=== PATIENT | female | born 1990 | race Two or more races ===

== ENCOUNTER 2017-02-02 03:26 | Emergency (ER) | payer SELFPAY ==
[2017-02-02 04:15] VITALS: TEMP 98.8
--- NOTE | 2017-02-02 05:32 | PD ---
HPI Chief Complaint contractions Date Seen: Feb 02, 2017 Travel History International Travel<30 Days: No Contact w/Intl Traveler<30Days: No History of Present Illness HPI 26 yo with no care. LMP thought to be April 2016. Patient's stated she is 40 weeks. Patient presents with c/o contractions. No LOF, VB. +FM Patient is from [facility] and her dialect cannot be translated by [employer] or beauty culturist apprentice present. Her can communicate with the translators. History Past Medical History Medical History: Denies Significant Hx Obstetric History Obstetric History 2009 @ term [facility] 2015 @ [facility] Past Surgical History Surgical History: No Previous Surgery Family History Family History: Negative Social History Alcohol Use: No Tobacco Use: No Substance Abuse: No Allergies-Medications (Allergen,Severity, Reaction): Coded Allergies: No Known Allergies (Unverified , 02/02/17) Review of Systems General / Constitutional: No: Fever, Chills HENT: No: Headaches Cardiovascular: No: Chest Pain or Discomfort, Palpitations Respiratory: No: Short of Breath, Wheezing Gastrointestinal: Abdominal Pain (occasional contraction), No: Nausea, Vomiting, Diarrhea Genitourinary: No: Urgency, Frequency, Dysuria, Discharge, Vaginal Bleeding Musculoskeletal: No: Weakness, Edema Skin: No Rash, No Itching, No Lesions Neurologic: No: Syncope, Focal Abnormalities Physical Exam Exam Limitations: Poor Historian (varied information ) Narrative GENERAL: Well-nourished, well-developed patient. NAD SKIN: Warm and dry. HEAD: Normocephalic and atraumatic. EYES: No scleral icterus. No injection or drainage. ENT: No nasal drainage noted. Mucous membranes pink. Airway patent. NECK:trachea midline. No JVD. CARDIOVASCULAR: Regular rate and rhythm without murmurs, gallops, or rubs. RESPIRATORY: Breath sounds equal bilaterally. No accessory muscle use. ABDOMEN/GI: Abdomen soft, non-tender, no rebound, no guarding Gravid size< dates TOCO: Rare UC GENITOURINARY: External Genitalia: intact and normal in appearance BUS glands: [-] SVE: Closed/thick/high, no presenting part palpated by RN FHT's: Category: I Baseline: 125 Reactive: +accelerations Variability: mod Decels: [-] EXTREMITIES: No cyanosis or edema. BACK: Nontender without obvious deformity. NEUROLOGICAL: Awake and alert. Motor and sensory grossly within normal limits. Normal speech. BEDSIDE US: Normal CHERIE Fundal posterior placenta EGA 32w4d EFW 1913g CROW Data Data Vital Signs Reviewed: Yes Orders Vital Signs (Adult) .ON ADMISSION (02/02/17 04:59) ^ Labor Status (02/02/17 04:59) Urinalysis - C+S If Indicated (02/02/17 04:59) ^ Non Stress Test (02/02/17 04:59) Gc And Chlamydia Pcr (02/02/17 04:59) Rubella Immune Status (02/02/17 04:59) Hepatitis Profile (02/02/17 04:59) Rapid Plasma Regin (Rpr) W Ttr (02/02/17 04:59) Type And Screen (02/02/17 04:59) Complete Blood Count With Diff (02/02/17 04:59) Special Serology (02/02/17 04:59) Ob/Psych Drug Screen, Urine (02/02/17 04:59) Labs Laboratory Tests Test 02/02/17 05:00 White Blood Count 8.2 TH/MM3 Red Blood Count 3.80 MIL/MM3 Hemoglobin 10.4 GM/DL Hematocrit 32.3 % Mean Corpuscular Volume 84.9 FL Mean Corpuscular Hemoglobin 27.3 PG Mean Corpuscular Hemoglobin 32.2 % Concent Red Cell Distribution Width 14.3 % Platelet Count 249 TH/MM3 Mean Platelet Volume 8.3 FL Neutrophils (%) (Auto) 72.1 % Lymphocytes (%) (Auto) 17.4 % Monocytes (%) (Auto) 7.2 % Eosinophils (%) (Auto) 2.9 % Basophils (%) (Auto) 0.4 % Neutrophils # (Auto) 5.9 TH/MM3 Lymphocytes # (Auto) 1.4 TH/MM3 Monocytes # (Auto) 0.6 TH/MM3 Eosinophils # (Auto) 0.2 TH/MM3 Basophils # (Auto) 0.0 TH/MM3 CBC Comment DIFF FINAL Differential Comment Urine Color YELLOW Urine Turbidity HAZY Urine pH 7.0 Urine Specific [place] 1.014 Urine Protein NEG mg/dL Urine Glucose (UA) NEG mg/dL Urine Ketones NEG mg/dL Urine Occult Blood NEG Urine Nitrite NEG Urine Bilirubin NEG Urine Urobilinogen LESS THAN 2.0 MG/DL Urine Leukocyte Esterase LARGE Urine RBC LESS THAN 1 /hpf Urine WBC 4 /hpf Urine Squamous Epithelial 6 /hpf Cells Urine Bacteria RARE /hpf Urine Mucus FEW /lpf Microscopic Urinalysis Comment CULT NOT INDICATED Urine Opiates Screen NEG Urine Barbiturates Screen NEG Urine Amphetamines Screen NEG Urine Benzodiazepines Screen NEG Urine Cocaine Screen NEG Urine Cannabinoids Screen NEG MDM Medical Record Reviewed: Yes (Were able locate records from prior ) Narrative Course / MDM 32 weeks by bedside US No s/s PTL No care Reviewed prior records, patient had one year ago, had some care at [facility] CAT I FHT Plan labs obtained Reviewed CROW Patient given information on contacting [facility] for care today. Patient needs to f/u on labs and obtain formal US. D/c home with precautions Diagnosis Diagnosis: Primary Impression: Abdominal pain during in third trimester Additional Impressions: No care in current in third trimester 32 weeks gestation of Disposition: 01 DISCHARGE HOME Condition: Good Anita Montes MD Feb 02, 2017 05:32
[2017-02-02 05:34] LABS: AUTOMATED NEUTROPHIL # 5.9 TH/MM3 (1.8-7.7); BASOPHIL % 0.4 % (0.0-2.0); EOSINOPHIL # 0.2 TH/MM3 (0-0.4); EOSINOPHIL % 2.9 % (0.0-4.0); HEMATOCRIT 32.3 % (35.0-46.0); HEMO FLAGS DIFF FINAL; LYMPH % 17.4 % (9.0-44.0); LYMPHOCYTE # 1.4 TH/MM3 (1.0-4.8); MEAN CELL VOLUME 84.9 FL (80.0-100.0); MEAN CORPUSCULAR HEMOGLOBIN 27.3 PG (27.0-34.0); MEAN CORPUSCULAR HGB CONC 32.2 % (32.0-36.0); MONO % 7.2 % (0.0-8.0); NEUT % 72.1 % (16.0-70.0); PLATELET COUNT 249 TH/MM3 (150-450); RED CELL DISTRIBUTION WIDTH 14.3 % (11.6-17.2); WHITE BLOOD COUNT 8.2 TH/MM3 (4.0-11.0)
[2017-02-02 05:42] LABS: AMPHETAMINE, URINE NEG (NEG); BARBITURATES, URINE NEG (NEG); COCAINE, URINE NEG (NEG)
[2017-02-02 05:48] LABS: BACTERIA, URINE RARE /hpf; BLOOD, URINE NEG (NEG); COMMENT (UR) CULT NOT INDICATED; CULTURE IF INDICATED CULT NOT INDICATED; GLUCOSE,URINE NEG (NEG); KETONE, URINE NEG (NEG); MUCUS URINE FEW /lpf (OCC); NITRITE,URINE NEG (NEG); SQUAMOUS EPITHELIAL CELL URINE 6 /hpf (0-5); URINE COLOR YELLOW (YELLW/STRAW)
[2017-02-02 06:13] LABS: RUBELLA IGG ANTIBODY 120.3 IU/mL (10.0-500.0); RUBELLA STATUS IMMUNE (IMMUNE)
[2017-02-02 11:26] LABS: CHLAMYDIA PCR NOT DETECTED (NOT DETECT); NEISSERIA PCR NOT DETECTED (NOT DETECT)
[2017-02-02 11:27] LABS: RAPID PLASMA REAGIN SCREEN NON-REACTIVE (NON-REACTVE)
[2017-02-05 09:51] LABS: BATH SALTS (MDPV) UR NEG (NEG); ECSTASY (MDMA) UR NEG (NEG); GABAPENTIN UR NEG (NEG); HEROIN (6-ACETYLMORPHINE) UR NEG (NEG); HYDROMORPHONE U NEG (NEG); K2 SPICE UR NEG (NEG); OBMETHADONE UR NEG (NEG); OXYCODONE (PERCODAN) NEG (NEG); PHENCYCLIDINE URINE NEG (NEG)
== END 2017-02-02 06:30 | disposition home or self-care (01) ==
LOC: HOBED 03:26
DX: O26.893 Other specified pregnancy related conditions, third trimester (principal); R10.9 Unspecified abdominal pain; O09.33 Supervision of pregnancy with insufficient antenatal care, third trimester; Z3A.32 32 weeks gestation of pregnancy
CPT/HCPCS: 36415; 59025; 76815; 80074; 80307; 81001; 85025; 86077; 86592; 86703; 86762; 86850; 86870; 86900; 86901; 86902; 87081; 87491; 87591; 99284; G0481